=== PATIENT | female | born 1960 | race Caucasian/White ===

== ENCOUNTER 2016-10-16 04:10 | Emergency (ER) | payer MEDICARE, OTHER ==
[2016-10-16] MEDS ORDERED: ONDANSETRON HCL/PF 2 MG/ML VIAL ONE ×2 (04:24→04:29)
[2016-10-16] MEDS ORDERED: FAMOTIDINE 10 MG/ML VIAL IV ONE ×2 (04:25→04:27)
[2016-10-16] MEDS ORDERED: METHYLPREDNISOLONE SOD SUCC/PF 125 MG/2 ML VIAL IV ONE (04:26)
[2016-10-16] MEDS ORDERED: EPINEPHrine 1 MG/ML AMPUL IM ONE (04:26)
[2016-10-16] MEDS ORDERED: ONDANSETRON HCL/PF 2 MG/ML VIAL IV ONE ×2 (04:28)
[2016-10-16] MEDS ORDERED: NORMAL SALINE 1,000 ML IV ONE (04:31)
--- NOTE | 2016-10-16 05:13 | ERNOTE ---
Allergy Symptoms - ER Presenting Symptoms: dizziness Time Seen by Provider: 10/16/16 04:15 Source: patient Exam Limitations: no limitations Immunizations: IMMUNIZATION HX Immunizations Up to Date Yes History of Influenza Vaccine Yes Hx Pneumococcal Vaccination No Allergies/Adverse Reactions: Allergies Luzcsgu-Fvb-Cfd Reductase Inhibitor Allergy (Verified 10/16/16 04:16) codeine Adverse Reaction (Verified 10/16/16 04:16) Sulfa (Sulfonamide Antibiotics) Adverse Reaction (Verified 10/16/16 04:15) Home Medications: HOME MEDICATIONS Aspirin 325 mg PO DAILY 10/16/16 [Last Taken Unknown] Baclofen 10 mg PO TID 10/16/16 [Last Taken Unknown] Cyanocobalamin [Vitamin B-12] 1,000 mcg IJ Q42D 10/16/16 [Last Taken Unknown] Estradiol 0.5 mg PO DAILY 10/16/16 [Last Taken Unknown] Ezetimibe [Zetia] 10 mg PO DAILY 10/16/16 [Last Taken Unknown] Fesoterodine Fumarate [Toviaz] 4 mg PO DAILY 10/16/16 [Last Taken Unknown] Gabapentin [Neurontin] 600 mg PO HS 10/16/16 [Last Taken Unknown] HYDROcodone/ACETAMINOPHEN [Hydrocodon-Acetaminoph 7.5-325] 1 each PO Q6H PRN [Last Taken Unknown] Lidocaine [Lidocaine Ointment] 1 appl TP PRN PRN 10/16/16 [Last Taken Unknown] Lisinopril [Zestril] 20 mg PO DAILY 10/16/16 [Last Taken Unknown] [place]-3S/Dha/Epa/Fish Oil [Fish Oil 1,200 mg Softgel] 1 each PO DAILY 10/16/16 [ Last Taken Unknown] Omeprazole 20 mg PO BID 10/16/16 [Last Taken Unknown] PARoxetine HCL [Paxil] 40 mg PO DAILY 10/16/16 [Last Taken Unknown] Pitavastatin Calcium [Livalo] 4 mg PO DAILY 10/16/16 [Last Taken Unknown] Prasugrel HCl [Effient] 10 mg PO DAILY 10/16/16 [Last Taken Unknown] Triamcinolone Acetonide [Kenalog 0.1%] 1 appl TP BID 10/16/16 [Last Taken Unknown] metFORMIN HCL [Glucophage] 850 mg PO BID 10/16/16 [Last Taken Unknown] - History of Present Illness Narrative: Pt began having a rash before going to bed, she took 50 mg of benadryl and went to sleep. She was awakened by itching and took 50 additional mg of benadryl. This did not help and she had nausea and felt like she was going to pass out. 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 Location skin rash/itching: Present: diffuse Location swelling: Present: hands, feet Severity shortness of breath: Present: mild Identified cause?: No Modifying Factors (Improves): Denies: medications - prior to coming to the ED Review of Systems - Review of Systems Constitutional: Absent: fever, chills EYE: Present: no symptoms reported ENT: Present: no symptoms reported Respiratory: Present: shortness of breath Cardiology: Present: edema Gastrointestinal/Abdominal: Present: See HPI, nausea Genitourinary: Present: no symptoms reported Musculoskeletal: Present: back pain - after falling in the [place] yesterday. After "walking it off" she felt better Skin: Present: rash Neurological: Present: dizziness/light-headedness. Absent: numbness, tingling Endocrine: Present: no symptoms reported Hematologic/Lymphatic: Present: no symptoms reported Psych: Present: no symptoms reported - Patient's Past Medical History Patient History - Medical: Diabetes Type 2, Depression, Fibromyalgia Patient History - Cardiac/Respiratory: Coronary Heart Disease, Hyperlipidemia, Myocardial Infarction Patient History - Cancer: No Hx of Cancer Patient History - Surgical Procedures: Appendectomy, Hysterectomy, Other - Social History Living Situations: alone Abuse History: No History of abuse Psych History: Hx of Depression Smoking Status: Former smoker Have you smoked in the past 12 months: No Do you dip or chew tobacco: No Alcohol Use: none Drug Use: none - Immunizations Immunizations Up to Date: Yes Hx Pneumococcal Vaccination: No History of Influenza Vaccine: Yes Physical Exam - Physical Exam General Appearance: Present: wd/wn, alert, mild distress, moderate distress Eye Exam: Normal inspection: bilateral Ears, Nose, Throat: Present: normal ENT inspection, normal pharynx Neck: Present: normal inspection, nontender Respiratory: Present: no respiratory distress, wheezing - faint Cardiovascular/Chest: Present: regular rate, rhythm Gastrointestinal/Abdominal: Present: normal bowel sounds Back Exam: Present: normal inspection, normal range of motion Extremity Exam: Present: normal inspection Neurological Exam: Present: oriented Skin Exam: Present: skin rash - hives on arms and legs Lymphatic Exam: Present: no adenopathy ED Progress - Vital Signs Vital Signs: Vital Signs 10/16/16 10/16/16 10/16/16 04:17 04:32 04:43 Temperature 37.2 C Pulse Rate 76 68 Respiratory 18 19 18 Rate Blood Pressure 97/58 97/50 O2 Sat by Pulse 94 92 Oximetry - Progress/Reassessment Chief Complaint: Allergic Reaction Progress:: Improved Progress Note-Subjective: 10/16/16 05:11 BP improving pt more relaxed. Hives resolved. 10/16/16 06:16 Pt feels much better. no itching, still feels "puffy" in her hands, no shortness of breath. Departure Clinical Impression: Allergic reaction Qualifiers: Encounter type: initial encounter Qualified Code(s): T78.40XA - Allergy, unspecified, initial encounter - Departure Disposition: Home self-care Condition: Good Instructions: Ryan, [id number] Additional Instructions: Watch for any return of your symptoms. Return to ER if symptoms return
[2016-10-16 06:19] VITALS: BP 101/81
--- OUTSIDE RECORDS SUMMARY | 2016-10-16 06:23 | XMS REPORT | Continuity of Care Document ---
:1960 Author Organization [facility] [place] [address] Care Team Providers Name Role Phone Stone Mooney Primary Care Provider [phone] Source Comments This disclosure is being made pursuant to the [employer] program and maynot contain all information available regarding this patient.[facility] Active Allergies and Adverse Reactions Allergen Noted Date Severity Reactions Comments Codeine 03/15/2014 High Hives,Seizures Fenofibrate 03/15/2014 Low Rash Gemfibrozil 03/15/2014 Low Rash Other 03/15/2014 Medium Nausea And Vomiting,Other (See reglan Comments) Paroxetine Hcl 03/15/2014 Medium Nausea And Vomiting Plaquenil 03/15/2014 Low Rash Sulfa Antibiotics 03/15/2014 High Hives Current Medications Be aware that medications may not be up to date as of this document. Alwaysverify current medications with the patient. Prescription Sig. Disp. Refills Start End Status Date Date fluticasone 1 spray by Nasal Active (FLONASE) 50 route as needed. 3 MCG/ACT nasal spray Each nostril aspirin 325 MG Take 325 mg by Active tablet mouth daily. promethazine Take 1 tablet by 10 tablet 0 Active (PHENERGAN) 12.5 MG mouth every 6 5 tablet (six) hours as needed for Nausea. cyclobenzaprine Take 10 mg by Active (FLEXERIL) 10 MG mouth every 8 tablet (eight) hours as needed for Muscle spasms. glucose blood test Uses alden plus 100 each 0 Active strip meter. DX: E11.9 6 Blood Glucose 1 Device by Does 1 each 0 Active Monitoring Suppl not apply route 6 MICHELLE daily. Uses alden plus. DX: E11.9 triamcinolone Apply to affected 45 g 5 Active (KENALOG) 0.1 % area twice daily 6 cream as needed no more than 2 weeks at a time Lancets MISC Test blood sugar 100 each 2 Active once daily and as 6 needed. Uses [employer] plus meter. DX: E11.9 vitamin B-12 Inject 1 ml in the 1 mL 4 Active (CYANOCOBALAMIN) muscle once every 6 1000 MCG/ML 6 weeks. injection SYRINGE-NEEDLE, Use syringe to 1 each 5 Active DISP, 3 ML inject 6 (MEDSAVER SYRINGE cyanocobalamin 3CC/25GX1") 25G X (vitamin b-12) 1" 3 ML MISC 1000 mcg IM every 6 weeks fish oil 1000 MG Take 1 capsule by 90 capsule 3 Active CAPS mouth daily. 6 estradiol (ESTRACE) TAKE 1 TABLET 90 tablet 1 Active 0.5 MG tablet EVERY DAY 6 gabapentin TAKE 2 CAPSULES 180 capsule 1 Active (NEURONTIN) 300 MG NIGHTLY. 6 capsule ZETIA 10 MG tablet TAKE 1 TABLET 90 tablet 1 Active EVERY DAY 6 lisinopril TAKE 1 TABLET 90 tablet 1 Active (PRINIVIL,ZESTRIL) EVERY DAY 6 20 MG tablet prasugrel HCl Take 1 tablet by 90 tablet 2 Active (EFFIENT) 10 MG mouth daily. 6 tablet lidocaine-prilocain Apply up to 2 60 g 5 Active e (EMLA) cream affected areas up 7 to twice a day. LIVALO 4 MG TABS TAKE 1 TABLET 90 tablet 3 Active tblet EVERY DAY 7 baclofen (LIORESAL) Take 1 tablet by 270 tablet 3 Active 10 MG tablet mouth 3 (three) 7 times daily. omeprazole Take 1 capsule by 90 capsule 3 Active (PRILOSEC) 20 MG mouth every 7 capsule morning before breakfast. PAXIL 40 MG tablet TAKE 1 TABLET 90 tablet 1 Active EVERY MORNING 7 metFORMIN Take 1 tablet by 180 tablet 1 Active (GLUCOPHAGE) 850 MG mouth 2 (two) 7 tablet times daily. TOVIAZ 4 MG TB24 TAKE 1 TABLET 90 tablet 1 Active 24hr tablet EVERY DAY 7 HYDROcodone-acetami Take 1-2 tablets 240 tablet 0 04/03/201 Active nophen (NORCO) by mouth every 6 7 7.5-325 MG per (six) hours as tablet needed. metFORMIN Take 1 tablet by 180 tablet 1 Discontinued (GLUCOPHAGE) 850 MG mouth 2 (two) 6 017 tablet times daily. fesoterodine Take 1 tablet by 90 tablet 1 Discontinued fumarate (TOVIAZ) 4 mouth daily. 7 017 MG TB24 24hr tablet HYDROcodone-acetami Take 1-2 tablets 240 tablet 0 Discontinued nophen (NORCO) by mouth every 6 7 017 7.5-325 MG per (six) hours as tablet needed Earliest Fill Date: 08/26/16. Active Problems Problem Noted Date Depression 12/10/2015 Hypertriglyceridemia 11/27/2015 Urinary frequency 11/13/2015 Lumbar spondylosis 12/24/2014 Sacroiliitis (HCC) 12/24/2014 Spinal stenosis, lumbar region, without neurogenic claudication 12/24/2014 Generalized osteoarthrosis, involving multiple sites 03/22/2014 Overview: Overview: STONE MOONEY DO Erythema nodosum 03/22/2014 Overview: Overview: EFREN HOFFMANN MD Overview: EFREN HOFFMANN MD Esophageal reflux 09/14/2012 Overview: Overview: DAY RESENDIZ MD Gastroparesis 09/14/2012 Overview: Overview: DAY RESENDIZ MD Personal history of malignant neoplasm of rectum, rectosigmoid junction, 07/09 and anus Overview: Overview: Tori ALBERTS MD Postmenopausal status (age-related) (natural) 07/09/2011 Overview: Overview: Tori ALBERTS MD Other screening mammogram 07/09/2011 Overview: Overview: Tori ALBERTS MD Insomnia 04/07/2011 Overview: Overview: STONE MOONEY DO Aftercare following joint replacement 02/17/2011 Overview: Overview: L TKA 01/12/11 REVA CROWLEY CNP Coronary atherosclerosis of [place] coronary artery 12/09/2010 Overview: Overview: JAC CARBAJAL MD Postsurgical percutaneous transluminal coronary angioplasty status 12/09/2010 Overview: Overview: JAC CARBAJAL MD Abnormal electrocardiogram 10/23/2010 Overview: Overview: JAC CARBAJAL MD Family history of ischemic heart disease 10/23/2010 Overview: Overview: JAC CARBAJAL MD Personal history of tobacco use, presenting hazards to health 10/23/2010 Overview: Overview: JAC CARBAJAL MD Hypercholesterolemia 10/23/2010 Overview: Overview: JAC CARBAJAL MD Essential hypertension 05/30/2010 Overview: Overview: STONE MOONEY DO Hereditary and idiopathic peripheral neuropathy 12/25/2009 Overview: Overview: STONE MOONEY DO Pernicious anemia 11/13/2009 Overview: Overview: STONE MOONEY DO Borderline personality disorder 11/13/2009 Overview: Overview: STONE MOONEY DO Personal history of allergy to medicinal agent 11/13/2009 Overview: Overview: STONE MOONEY DO Rheumatoid arthritis(714.0) 01/08/2009 Overview: Overview: EFREN HOFFMANN MD Leukocytosis 04/27/2008 Overview: Overview: DILAN HINSON MD Squamous cell carcinoma of skin of trunk, except scrotum 08/23/2007 Overview: Overview: DILAN HINSON MD Diabetes mellitus type II, controlled (HCC) Resolved Problems Problem Noted Date Resolved Date Cervicalgia 12/24/2014 05/21/2015 Contusion of lower leg 10/18/2013 05/21/2015 Overview: Overview: STONE MOONEY DO Contusion of upper limb 10/18/2013 05/21/2015 Overview: Overview: STONE MOONEY DO Abdominal pain 06/19/2013 05/21/2015 Overview: Overview: STONE MOONEY DO Rash and nonspecific skin eruption 2013 05/21/2015 Overview: Overview: STONE MOONEY DO Screening for thyroid disorder 08/15/2012 05/21/2015 Overview: Overview: STONE MOONEY DO Symptomatic menopausal or female climacteric states 07/26/2012 05/21/2015 Overview: Overview: STONE MOONEY DO Tobacco use disorder 01/04/2012 05/21/2015 Overview: Overview: JAC CARBAJAL MD Mixed emotional features as adjustment reaction 08/12/2011 05/21/2015 Overview: Overview: STONE MOONEY DO Legal circumstance 08/12/2011 05/21/2015 Overview: Overview: STONE MOONEY DO Urinary tract infection 09/23/2010 05/21/2015 Overview: Overview: STONE MOONEY DO Backache 09/11/2010 05/21/2015 Overview: Overview: STONE MOONEY DO Need for prophylactic vaccination and inoculation against 04/09/20102014 influenza Overview: Overview: STONE MOONEY DO Myalgia and myositis 02/25/2010 05/21/2015 Overview: Overview: EFREN HOFFMANN MD Carpal tunnel syndrome 11/13/2009 05/21/2015 Overview: Overview: STONE MOONEY DO Type II diabetes mellitus (HCC) 11/13/2009 05/21/2015 Overview: Overview: STONE MONOEY DO Hyperglyceridemia 11/13/2009 05/21/2015 Overview: Overview: STONE MOONEY DO Dermatitis 01/02/2009 05/21/2015 Overview: Overview: LALITA BLACK Pruritic disorder 01/02/2009 05/21/2015 Overview: Overview: LALITA BLACK Pain in joint, multiple sites 01/26/2008 05/21/2015 Overview: Overview: EFREN HOFFMANN MD Human papilloma virus 08/23/2007 05/21/2015 Overview: Overview: DILAN HINSON MD Most Recent Encounters Date Type Specialty Providers Description 09/28/2016 Refill Rheumatology Rosalba Torres RN 09/25/2016 Refill Family Medicine Stone Mooney DO 09/25/2016 Refill Family Medicine Bernice Potter RN 09/24/2016 Data Import 08/26/2016 Refill Rheumatology April Owens CMA 07/29/2016 Refill Family Medicine Stone Mooney DO 07/23/2016 Office Visit Family Medicine Stone Mooney DO Pernicious anemia (Primary Dx); Controlled type 2 diabetes mellitus without complication, without long-term current use of insulin (HCC); Essential hypertension; Generalized osteoarthrosis, involvingmultiple sites; Borderline personality disorder; Hypercholesterolemia; Bipolar affective disorder, remission status unspecified (HCC); Erythema nodosum 07/23/2016 Office Visit Rheumatology Efren Hoffmann, Primary osteoarthritis MD involving multiple joints (Primary Dx); Fibromyalgia; Erythema nodosum 07/23/2016 Office Visit Gastroenterology Alon Rodrigues Gastroparesis (Primary T II, DO Dx); Gastroesophageal reflux disease without esophagitis 07/23/2016 Telephone Rheumatology Melida Lopez Medication Refill Ely, RN Immunizations Name Dates Previously Given Next Due INFLUENZA, INACTIVATED, QUADRIVALENT, 3 YEARS AND 03/25/2016 older, single dose syringe/vial Influenza Split 06/19/2013,04/09/2010 Influenza, Inactivated, Quadrivalent, 3 years and 05/21/2015 older, multi-dose vial Social History Tobacco Use Types Packs/Day Years Used Date Former Smoker Cigarettes 0.5 Smokeless Tobacco: Never Used Tobacco Cessation:Counseling Given: Yes Comments:Pt quit smoking 12/29/14 Alcohol Use Drinks/Week oz/Week Comments No 0 Standard drinks or equivalent 0.0 Last Filed Vital Signs Vital Sign Reading Time Taken Blood Pressure 134/86 07/23/2016 1:50 PM MANAGER [employer]EARCH [employer] DEVELOPMENT Pulse 80 07/23/2016 1:50 PM MANAGER [employer] DEVELOPMENT Temperature 36.4 C (97.6 F) 07/23/2016 10:25 AM MANAGER [employer]EARCH [employer] DEVELOPMENT Respiratory Rate 12 05/21/2015 10:44 AM MANAGER [employer] DEVELOPMENT Height 1.537 m (5' 0.5") 07/23/2016 1:50 PM MANAGER [employer]EARCH [employer] DEVELOPMENT Weight 87.091 kg (192 lb) 07/23/2016 1:50 PM MANAGER [employer]EARCH [employer] DEVELOPMENT Body Mass Index 36.87 07/23/2016 1:50 PM MANAGER [employer]EARCH [employer] DEVELOPMENT Oxygen Saturation - - Plan of Care Patient Goal Type Goal Blood Pressure Blood Pressure below 140/90 Result Component HEMOGLOBIN A1C below 7.0 Health Maintenance Due Date Last Done Comments Eye (Ophthalmology) Exam 1968 Hepatitis C Screening 1976 Pneumococcal Medium Risk 1977 19-64 yo (1 of 1 - PPSV23) Tetanus/Pertussis (1 - Tdap) 1977 Pap Smear 1979 Well Adult Visit 2008 LAB-HgA1C 01/20/2017 07/23/2016, Additional history exists 03/25/2016, 02/21/2015 Colonoscopy 03/25/2017 Postponed from 2008 (Patient Declined) Mammogram 04/25/2017 04/25/2015, 07/20/2011 Foot Exam 07/23/2017 07/23/2016 Lab-Lipids 07/23/2017 07/23/2016, Additional history exists 03/25/2016, 11/08/2014 Lab-Urine Microalbumin 07/23/2017 07/23/2016, Additional history exists 11/08/2014, 06/19/2013 Influenza Immunization Completed 03/25/2016, Additional history exists 05/21/2015, 06/19/2013 Results from Last 3 Months TSH (07/23/2016 10:11 AM) Component Value Range TSH 0.950 0.350-4.940 uIU/mL Narrative Testing performed at [facility], [address] [place] [address].Defense Attorney Fran Doe MD Microalbumin Urine Random (07/23/2016 10:11 AM) Component Value Range Microalbumin UR <0.50Comment:Unable to calculate 0.00-2.10 mg/dL Microalbumin/Creatinine Ratio due to linear low results. Creatinine Urine 126.0 mg/dL Narrative Testing performed at [facility], [address] [place] [address].Defense Attorney Fran Doe MD Specimen: UACUL Lipid panel (07/23/2016 10:11 AM) Component Value Range Cholesterol 162Comment:Cholesterol preferred <200 mg/dL. 0-200 mg/dL Clinical correlation is essential. Triglycerides 195 0-200 mg/dL HDL Cholesterol 43(L) >60 mg/dL LDL Calculated 80.0Comment: mg/dL <100Optimal 100-129 Near Optimal/Above Optimal 130-159 Borderline High 160-189 High >bw=[id number] High Cholesterol/HDL Ratio 3.8Comment:HDL:Chol ratio Low Risk 1:3.3-1:4.3, Clinical Correlation essential. Narrative Testing performed at [facility], [address] [place] [address].Defense Attorney Fran Doe MD Comprehensive metabolic panel (07/23/2016 10:11 AM) Component Value Range Glucose 113(H)Comment: 60-100 mg/dL Fasting Plasma Glucose (FPG)<100 MG/DL Impaired Fasting Glucose (IFG) 100-125 MG/DL Provisional Diagnosis of Diabetes Mellitus > hy=359 MG/DL (Diagnosis Must Be Confirmed) BUN, Blood 12 10-20 mg/dL Creatinine 0.7 0.6-1.2 mg/dL Glomerular Filtration Rate 96 >90 mL/min/1.73mm2 Estimate Glomerlular Filtration Rate 111Comment:The estimated GFR >90 mL/min/1.73mm2 Estimate- has not been validated for women or patients with serious comorbid conditions, or with extremes of body size, muscle mass, or nutritional status. Calcium 9.3 8.4-10.2 mg/dL Sodium 140 136-145 mmol/L Potassium 4.2 3.5-4.6 mmol/L Chloride 104 99-111 mmol/L CO2 29.1 21.0-32.0 mmol/L Albumin 3.7 3.5-5.0 g/dL Total Protein 7.1 6.1-8.0 g/dL Bilirubin Total 0.6 0.2-1.2 mg/dL Alkaline Phosphatase 72 40-150 U/L AST 28 5-34 U/L ALT 27 0-55 u/L Narrative Testing performed at [facility], [address] [place] [address].Defense Attorney Fran Doe MD CBC auto differential (07/23/2016 10:11 AM) Component Value Range WBC 7.4 3.1-11.0 x10^3/uL RBC 4.37 3.60-5.17 x10^6/uL Hemoglobin 13.6 11.1-15.3 g/dL Hematocrit 40.6 33.7-46.0 % MCV 92.9 81.0-98.0 fL MCH 31.1 27.2-33.3 pg MCHC 33.5 31.7-35.6 g/dL RDW 13.2 10.8-14.6 % SD-RDW 43.5 37.0-50.4 fL Platelets 369 147-370 x10^3/uL MPV 9.3 9.1-12.1 fL NE% 52.4 42.0-76.0 % %LYMPH 39.4 15.0-44.0 % %MONO 5.5 4.0-13.0 % % Eosinophils 1.6 0.0-6.0 % % Basophils 0.8 0.0-1.0 % Imm Gran Relative 0.3 0.0-1.0 % NE# 3.9 1.2-7.3 x10^3/uL Lymphs # 2.9 0.6-3.5 x10^3/uL Conway# 0.4 0.2-0.9 x10^3/uL Eosinophil # 0.1 0.0-0.4 x10^3/uL Baso# 0.1 0.0-0.1 x10^3/uL Imm Gran Absolute 0.02 0.00-0.10 x10^3/uL Specimen BLOOD Narrative Testing performed at [facility], [address] [place] [address].Defense Attorney Fran Doe MD Specimen: BLD Vitamin B12 (07/23/2016 10:11 AM) Component Value Range Vitamin B-12 436 213-816 pg/mL Narrative Testing performed at [facility], [address] [place] [address].Defense Attorney Fran Doe MD Hemoglobin A1c (07/23/2016 10:11 AM) Component Value Range Hemoglobin A1C 6.6Comment: % Nondiabetic Patient:4.0 - 6.0 % Diabetic Patient: < 7.0 % Clinical correlation is essential Estimated Avg Glucose 143 mg/dL Narrative Testing performed at [facility], [address] [place] [address].Defense Attorney Fran Doe MD
--- OUTSIDE RECORDS SUMMARY | 2016-10-16 06:23 | XMS REPORT | Continuity of Care Document ---
:1960 Author Organization [facility] ([facility]) Address [place] [address] Phone [phone] Care Team Providers Name Role Phone Brain De León Primary Care Provider [phone] Source Comments This disclosure is being made pursuant to the Care Everywhere program, applicable federal and state laws, and may not contain all informaitonavailable regarding this patient.[facility] ([facility]) Active Allergies and Adverse Reactions Allergen Noted Date Severity Reactions Comments Codeine Urticaria (Hives) "have a seizure too" Sulfadoxine Urticaria (Hives) Current Medications Not on file Active Problems Not on file Social History Tobacco Use Types Packs/Day Years Used Date Never Assessed Last Filed Vital Signs Vital Sign Reading Time Taken Blood Pressure - - Pulse - - Temperature - - Respiratory Rate - - Height - - Weight 91.999 kg (202 lb 13.1 oz) 08/18/2004 12:50 PM 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
== END 2016-10-16 06:33 | disposition home or self-care (01) ==
LOC: ER 04:10
DX: L50.0 Allergic urticaria (principal); T78.40XA Allergy, unspecified, initial encounter; Z87.891 Personal history of nicotine dependence

== ENCOUNTER 2016-12-06 15:44 | Emergency (ER) | payer MEDICARE ==
[2016-12-06] MEDS ORDERED: ONDANSETRON HCL/PF 2 MG/ML VIAL IV ONE (16:06)
[2016-12-06] MEDS ORDERED: NORMAL SALINE 1,000 ML IV ONE (16:06)
--- OUTSIDE RECORDS SUMMARY | 2016-12-06 16:08 | XMS REPORT | Continuity of Care Document ---
:1960 Author Organization [facility] ([facility]) Address [place] [address] Phone [phone] Care Team Providers Name Role Phone Brain De León Primary Care Provider [phone] Source Comments This disclosure is being made pursuant to the Care Everywhere program, applicable federal and state laws, and may not contain all informaitonavailable regarding this patient.[facility] ([facility]) Active Allergies and Adverse Reactions Allergen Noted [...] (202 lb 13.1 oz) 08/18/2004 12:50 PM STUDIO ENGINEER Body Mass Index - - Oxygen Saturation [...]
--- OUTSIDE RECORDS SUMMARY | 2016-12-06 16:08 | XMS REPORT | Continuity of Care Document ---
:1960 Author Organization [facility] [place] [address] Care Team Providers Name Role Phone Stone Mooney Primary Care Provider [phone] Source Comments This disclosure is being made pursuant to the My Own Med program and maynot contain all information available regarding this patient.[facility] Active Allergies and Adverse Reactions Allergen Noted Date Severity Reactions Comments Codeine 03/15/2014 High Hives,Seizures Fenofibrate 03/15/2014 Low Rash Gemfibrozil 03/15/2014 Low Rash Lipitor 11/02/2016 High Hives Other 03/15/2014 Medium Nausea And Vomiting,Other (See [...] once daily and as 6 needed. Uses alden plus meter. DX: E11.9 vitamin B-12 Inject [...] capsule 3 Active CAPS mouth daily. 6 prasugrel HCl Take 1 tablet by 90 [...] 1 Active 24hr tablet EVERY DAY 7 lisinopril TAKE 1 TABLET 90 tablet 1 Active (PRINIVIL,ZESTRIL) EVERY DAY 7 20 MG tablet estradiol (ESTRACE) TAKE 1 TABLET 90 tablet 1 Active 0.5 MG tablet EVERY DAY 7 ZETIA 10 MG tablet TAKE 1 TABLET 90 tablet 0 Active EVERY DAY 7 gabapentin TAKE 2 CAPSULES 180 capsule 1 Active (NEURONTIN) 300 MG NIGHTLY. 7 capsule HYDROcodone-acetami Take 1-2 tablets 240 tablet 0 Active nophen (NORCO) by mouth every 6 7 7.5-325 MG per (six) hours as tablet needed. HYDROcodone-acetami Take 1-2 tablets 240 tablet 0 Discontinued nophen (NORCO) by mouth every 6 7 017 7.5-325 MG per (six) hours as tablet needed. Active Problems Problem Noted Date Bipolar affective disorder ([facility]) 10/19/2016 Depression 12/10/2015 Hypertriglyceridemia 11/27/2015 Urinary frequency 11/13/2015 Lumbar spondylosis 12/24/2014 Sacroiliitis ([facility]) 12/24/2014 Spinal stenosis, lumbar region, without neurogenic claudication 12/24/2014 Generalized osteoarthrosis, involving multiple sites 03/22/2014 Overview: Overview: STONE MOONEY DO Erythema nodosum 03/22/2014 Overview: Overview: VENKATA HOFFMANN MD Overview: VENKATA HOFFMANN MD Esophageal reflux 09/14/2012 Overview: Overview: [...] 01/12/11 REVA CROWLEY CNP Coronary atherosclerosis of [place] coronary artery 12/09/2010 Overview: Overview: JAC CARBAJAL [...] MOONEY DO Rheumatoid arthritis(714.0) 01/08/2009 Overview: Overview: VENKATA HOFFMANN MD Leukocytosis 04/27/2008 Overview: Overview: DILAN [...] Myalgia and myositis 02/25/2010 05/21/2015 Overview: Overview: VENKATA HOFFMANN MD Carpal tunnel syndrome 11/13/2009 05/21/2015 Overview: Overview: STONE MOONEY DO Type II diabetes mellitus (HCC) 11/13/2009 05/21/2015 Overview: Overview: STONE MOONEY DO Hyperglyceridemia 11/13/2009 05/21/2015 Overview: Overview: STONE MOONEY DO Dermatitis 01/02/2009 05/21/2015 Overview: Overview: LALITA BLACK Pruritic disorder 01/02/2009 05/21/2015 Overview: Overview: LALITA BLACK Pain in joint, multiple sites 01/26/2008 05/21/2015 Overview: Overview: VENKATA HOFFMANN MD Human papilloma virus 08/23/2007 05/21/2015 Overview: Overview: DILAN HINSON MD Most Recent Encounters Date Type Specialty Providers Description 11/24/2016 Refill Rheumatology Hilda Mendoza LPN 11/02/2016 Initial consult Podiatry Stone Mooney DO Cellulitis of fourth Williamson, Shwetal B, toe of left foot DPM (Primary Dx); Pain of toe of left foot 10/30/2016 Refill Internal Medicine Stone Mooney DO Spinal stenosis, lumbar region, without neurogenic claudication 10/28/2016 Refill Internal Medicine Stone Mooney DO 10/28/2016 Refill Cardiology Jac Carbajal Medication Refill 10/22/2016 Telephone Family Medicine Rosalba Huddleston Other RN 10/22/2016 Telephone Rheumatology Melida Lopez Medication Refary Graves RN 10/19/2016 Office Visit Family Medicine Stone Mooney DO Cellulitis and abscess of foot (Primary Dx); Controlled type 2 diabetes mellitus without complication, without long-term current use of insulin (HCC); Bipolar affective disorder, remission status unspecified (HCC); Acute midline thoracic back pain; Chronic midline low back pain with left-sided sciatica 09/28/2016 Refill Rheumatology Rosalba Torres RN 09/25/2016 Refill Family Medicine Stone Mooney DO 09/25/2016 Refill Family Medicine Bernice Potter RN Immunizations Name Dates Previously Given Next [...] Vital Sign Reading Time Taken Blood Pressure 126/74 10/19/2016 10:24 AM CDT Pulse 66 10/19/2016 10:24 AM CDT Temperature 36.4 C (97.6 F) 07/23/2016 10:25 AM [employer]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 Respiratory Rate 12 05/21/2015 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 Height 1.537 m (5' 0.5") 07/23/2016 1:50 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 Weight 89.994 kg (198 lb 6.4 oz) 10/19/2016 10:24 AM CDT Body Mass Index 38.09 10/19/2016 10:24 AM CDT Oxygen Saturation - - Plan of Care [...] 2008 (Patient Declined) Mammogram 04/25/2017 04/25/2015, 07/20/2011 Lab-Lipids 07/23/2017 07/23/2016, Additional history exists 03/25/2016, 11/08/2014 Lab-Urine Microalbumin 07/23/2017 07/23/2016, Additional history exists 11/08/2014, 06/19/2013 Foot Exam 11/02/2017 11/02/2016, 07/23/2016 Influenza Immunization Completed 03/25/2016, Additional history exists 05/21/2015, 06/19/2013 Results from Last 3 Months XR LUMBOSACRAL SPINE MIN 4 VIEWS (10/19/2016 11:39 AM) [place] [address] DIAGNOSTIC IMAGING Name: Gabbie Aparicio Ordering Phys: Stone Real Age: [id number] of : [id number] Accession Number: [id number] Date of Service:10/19/2016 Gender: F EXAMINATION:LUMBAR SPINE HISTORY:History of degenerative disc disease and low back pain now having lower thoracic pain and pain into left thigh for approximately 1 week COMPARISON:None TECHNIQUE:Five views of the lumbar spine were obtained. FINDINGS: The alignment is notable for mild levoconvex curvature.There are 6 vvo-yir-ojfwshz vertebral bodies. Vertebral body and disc space heights are preserved. There is mild multilevel degenerative change. There is disc space narrowing greatest at theL4-5 level this is counting from the first jye-ptf-qxcjywo vertebral body. The soft tissues are within normal limits. IMPRESSION:Scoliosis multilevel degenerative change THIS IS AN ELECTRONICALLY VERIFIED REPORT 10/20/2016 1:17 PM: Papito Garcia M.D. [facility] Papito Garcia M.D. GR:verna Procedure Note Dalton, External Ris In - WedOct 20, 2016 1:21 [place] [address] DIAGNOSTIC IMAGING Name: Gabbie Aparicio Ordering Phys: Stone Real Age: [id number] Date of : [id number] Accession Number: [id number] Date of Service:10/19/2016 Gender: F EXAMINATION: LUMBAR SPINE HISTORY: History of degenerative disc disease and low back pain now having lower thoracic pain and pain into left thigh for approximately 1 week COMPARISON: None TECHNIQUE: Five views of the lumbar spine were obtained. FINDINGS: The alignment is notable for mild levoconvex curvature. There are 6 rbk-qmx-dekhxkv vertebral bodies. Vertebral body and disc space heights are preserved. There is mild multilevel degenerative change. There is disc space narrowing greatest at theL4-5 level this is counting from the first tca-ufc-znmobno vertebral body. The soft tissues are within normal limits. IMPRESSION: Scoliosis multilevel degenerative change THIS IS AN ELECTRONICALLY VERIFIED REPORT 10/20/2016 1:17 PM: Lyle Jasmine M.D. GR:verna XR THORACIC SPINE 3 VIEWS (10/19/2016 11:38 AM) [place] [address] DIAGNOSTIC IMAGING Name: Gabbie Aparicio Ordering Phys: Stone Real Age: [id number] of : [id number] Accession Number: [id number] Date of Service:10/19/2016 Gender: F EXAMINATION:THORACIC SPINE HISTORY:Degenerative disc disease with low back pain lower thoracic region pain and pain into left side worse for the last week COMPARISON:None TECHNIQUE: Three views of the thoracic spine were obtained. FINDINGS:The alignment is normal. Vertebral body heights are preserved. There is multilevel degenerative disc disease with anterior osteophytes and endplate sclerosis. The soft tissues are within normal limits. The lungs are notable for calcified granuloma IMPRESSION : Multilevel degenerative disc disease THIS IS AN ELECTRONICALLY VERIFIED REPORT 10/20/2016 1:19 PM: Lyle Jasmine M.D. GR:verna Procedure Note Dalton, External Ris In - WedOct 20, 2016 1:23 [place] [address] DIAGNOSTIC IMAGING Name: Gabbie AparicioRicky Ordering Phys: Stone Real Age: [id number] Date of : [id number] Accession Number: [id number] Date of Service:10/19/2016 Gender: F EXAMINATION: THORACIC SPINE HISTORY: Degenerative disc disease with low back pain lower thoracic region pain and pain into left side worse for the last week COMPARISON: None TECHNIQUE: Three views of the thoracic spine were obtained. FINDINGS: The alignment is normal. Vertebral body heights are preserved. There is multilevel degenerative disc disease with anterior osteophytes and endplate sclerosis. The soft tissues are within normal limits. The lungs are notable for calcified granuloma IMPRESSION : Multilevel degenerative disc disease THIS IS AN ELECTRONICALLY VERIFIED REPORT 10/20/2016 1:19 PM: Lyle Jasmine M.D. GR:gr Urinalysis with microscopic (10/19/2016 11:25 AM) Component Value Range *KWADWO TYPE Clean Catch Color, Fluid Yellow Yellow Clarity, Fluid Clear Clear Specific [place] 1.012 1.001-1.035 pH 5.5 5.0-8.0 Leukocyte Esterase, UA Negative Negative Nitrite Negative Negative Protein Negative Negative Glucose, Urinalysis Negative Negative Ketones, UA Negative Negative Urobilinogen Negative Negative Bilirubin Urine Negative Negative Blood Negative Negative WBC 3-6(A) 0-2 RBC 0-2 0-2 Epithelial Cells, Fluid Rare <2+ Bacteria 2+(A) None Specimen Cln Catch Narrative Testing performed at [facility], [address] [place] [address].Negative Turner Apprentice Fran Doe MD
[2016-12-06] MEDS ORDERED: ONDANSETRON HCL/PF 2 MG/ML VIAL ONE (16:18)
--- NOTE | 2016-12-06 16:18 | ERNOTE ---
Medical Problem HPI - Narrative Date of Service: 12/06/16 - General Chief Complaint: Nausea/Vomiting Time Seen by Provider: 12/06/16 16:01 Source: patient Exam Limitations: no limitations - Immun/Allergies/Home Medications Immunizations: IMMUNIZATION HX Immunizations Up to Date Yes History of Influenza Vaccine Yes Hx Pneumococcal Vaccination No Allergies/Adverse Reactions: Allergies Pfvduak-Eww-Byl Reductase Inhibitor Allergy (Verified 12/06/16 15:53) codeine Adverse Reaction (Verified 12/06/16 15:53) Sulfa (Sulfonamide Antibiotics) Adverse Reaction (Verified 12/06/16 15:53) Home Medications: HOME MEDICATIONS Aspirin 325 mg PO DAILY 10/16/16 [Last Taken Unknown] Baclofen 10 mg PO TID 10/16/16 [Last Taken Unknown] Cyanocobalamin [Vitamin B-12] 1,000 mcg IJ Q42D 10/16/16 [Last Taken Unknown] Estradiol 0.5 mg PO DAILY 10/16/16 [Last Taken Unknown] Ezetimibe [Zetia] 10 mg PO DAILY 10/16/16 [Last Taken Unknown] Fesoterodine Fumarate [Toviaz] 4 mg PO DAILY 10/16/16 [Last Taken Unknown] Gabapentin [Neurontin] 600 mg PO HS 10/16/16 [Last Taken Unknown] HYDROcodone/ACETAMINOPHEN [Hydrocodon-Acetaminoph 7.5-325] 1 each PO Q6H PRN [Last Taken Unknown] Lidocaine [Lidocaine Ointment] 1 appl TP PRN PRN 10/16/16 [Last Taken Unknown] Lisinopril [Zestril] 20 mg PO DAILY 10/16/16 [Last Taken Unknown] [place]-3S/Dha/Epa/Fish Oil [Fish Oil 1,200 mg Softgel] 1 each PO DAILY 10/16/16 [ Last Taken Unknown] Omeprazole 20 mg PO BID 10/16/16 [Last Taken Unknown] PARoxetine HCL [Paxil] 40 mg PO DAILY 10/16/16 [Last Taken Unknown] Pitavastatin Calcium [Livalo] 4 mg PO DAILY 10/16/16 [Last Taken Unknown] Prasugrel HCl [Effient] 10 mg PO DAILY 10/16/16 [Last Taken Unknown] Triamcinolone Acetonide [Kenalog 0.1%] 1 appl TP BID 10/16/16 [Last Taken Unknown] metFORMIN HCL [Glucophage] 850 mg PO BID 10/16/16 [Last Taken Unknown] Ondansetron [Zofran Odt] 4 mg PO Q8H PRN #20 tab 12/06/16 [Last Taken Unknown] - History of Present History Narrative: Patient presents to the emergency room for nausea and diarrhea and vomiting. Patient states that she had a friend's child over with nausea and vomiting yesterday and now she has nausea vomiting today. She also states that she has a GI problem where her small intestine doesn't move as fast or like it should she is on medication for that. Patient is also complaining of leg cramps at this time. Date (Duration): 12/06/16 Timing: intermittent Modifying Factors - (Improves): Present: medication Review of Systems - Review of Systems Constitutional: Present: no symptoms reported EYE: Present: no symptoms reported ENT: Present: no symptoms reported Respiratory: Present: no symptoms reported Cardiology: Present: no symptoms reported Gastrointestinal/Abdominal: Present: See HPI, nausea, vomiting, diarrhea. Absent: constipation, abdominal pain Genitourinary: Present: no symptoms reported Musculoskeletal: Present: muscle pain Skin: Present: no symptoms reported Neurological: Present: no symptoms reported Endocrine: Present: no symptoms reported Hematologic/Lymphatic: Present: no symptoms reported Psych: Present: no symptoms reported All Other Systems: All systems neg except as marked - Patient's Past Medical History Patient History - Medical: Diabetes Type 2, Depression, Fibromyalgia Patient History - Cardiac/Respiratory: Coronary Heart Disease, Hyperlipidemia, Myocardial Infarction Patient History - Cancer: No Hx of Cancer Patient History - Surgical Procedures: Appendectomy, Hysterectomy, Other - Social History Living Situations: alone Abuse History: No History of abuse Psych History: Hx of Depression Smoking Status: Never smoker Alcohol Use: none Drug Use: none - Immunizations Immunizations Up to Date: Yes Hx Pneumococcal Vaccination: No History of Influenza Vaccine: Yes Physical Exam - Physical Exam Narrative: patients abdomen is slightly distended, hypoactive bowel sounds, General Appearance: Present: wd/wn, alert, no apparent distress Eye Exam: Normal inspection: bilateral Ears, Nose, Throat: Present: normal ENT inspection Neck: Present: normal inspection, nontender Respiratory: Present: no respiratory distress, normal breath sounds, no accessory muscle use, chest nontender, lungs clear Cardiovascular/Chest: Present: regular rate, rhythm, no murmur, normal peripheral pulses Gastrointestinal/Abdominal: Present: nontender, soft, abnormal bowel sounds, distended. Absent: guarding, rebound Back Exam: Present: normal inspection, normal range of motion, no CVA tenderness , no vertebral tenderness Extremity Exam: Present: normal inspection, non-tender, normal range of motion, no edema Neurological Exam: Present: alert, oriented, normal mood/affect, no motor/ sensory deficits Skin Exam: Present: normal color, warm/dry Lymphatic Exam: Present: no adenopathy ED Progress - Results and Orders Patient's Lab Results:: I have reviewed the patient's lab results. Results and Orders: mild acidosis and elevated blood glucose, slightly dehydrated. - Vital Signs Patient's Vital Signs:: I have reviewed the patient's vital signs. Vital Signs: Vital Signs 12/06/16 12/06/16 15:45 15:46 Temperature 36.2 C L Pulse Rate 103 H Respiratory 16 Rate Blood Pressure 82/39 139/85 O2 Sat by Pulse 95 Oximetry - Progress/Reassessment Chief Complaint: Nausea/Vomiting Plan - Plan Plan: Patient will return to the emergency room if she starts having nausea/vomiting again. Patient is requesting to go home. Patient states she will follow-up with her GI doctor tomorrow. Departure - Departure Clinical Impression: Nausea and vomiting in adult patient Disposition: Home Follow Up Needed Condition: Stable Instructions: Nausea, Adult Additional Instructions: Please return to the emergency room if you develop any more nausea vomiting diarrhea or a fever. Follow-up with your GI doctor tomorrow. Encourage oral fluids. Follow a soft diet for the next day. Monitor glucose closely. Referrals: Madhu Mooney DO [Primary Care Provider] - Prescriptions: Ondansetron [Zofran Odt] 4 mg PO Q8H PRN #20 tab PRN Reason: Nausea
[2016-12-06 16:36] LABS: Hematocrit 39.3 % (37.0-47.0); Hemoglobin 13.6 gm/dL (12.5-16.0); Mean Cell Volume 92.7 fl (78-100); Mean Corpuscular Hemoglobin 32.1 pg (27-31); Mean Corpuscular Hgb Conc 34.6 g/dl (32-36); Mean Platelet Volume 8.6 fl (6.0-9.5); Neutrophil # 14.9 K/mm3 (1.3-6.0); Neutrophil % 88.2 % (42-75.0); Platelet Count 335 K/mm3 (150-450); Red Blood Count 4.24 M/mm3 (4.2-5.4); White Blood Count 16.8 K/mm3 (4.0-10.5)
[2016-12-06 16:56] LABS: Albumin * 3.5 gm/dl (3.4-5.0); Anion Gap 18.4 mmol/L (6.8-13.8); BUN/Creatinine Ratio 26.9 (9.0-21.6); Bilirubin, Total 0.7 mg/dL (0.0-1.1); Ca. Corrected For Albumin 9.3 mg/dL (8.4-10.2); Calcium * 9.2 mg/dL (7.9-10.9); Magnesium 1.5 mg/dL (1.2-2.8); Potassium 4.4 mmol/L (3.4-4.6); Total Protein 7.6 gm/dL (6.2-8.2)
[2016-12-06 19:02] VITALS: BP 129/75
== END 2016-12-06 18:47 | disposition home or self-care (01) ==
LOC: ER 15:44
DX: R11.2 Nausea with vomiting, unspecified (principal); E11.9 Type 2 diabetes mellitus without complications; F32.9 Major depressive disorder, single episode, unspecified; E78.5 Hyperlipidemia, unspecified
CPT/HCPCS: 36415; 80053; 83735; 85025; 96374; 99284; J2405

== ENCOUNTER 2017-02-17 13:35 | Emergency (ER) | payer MEDICARE ==
[2017-02-17 13:57] VITALS: BP 141/90
[2017-02-17 14:33] LABS: Hematocrit 38.7 % (37.0-47.0); Hemoglobin 13.7 gm/dL (12.5-16.0); Mean Cell Volume 92.4 fl (78-100); Mean Corpuscular Hemoglobin 32.7 pg (27-31); Mean Corpuscular Hgb Conc 35.4 g/dl (32-36); Neutrophil # 5.7 K/mm3 (1.3-6.0); Neutrophil % 66.2 % (42-75.0); Platelet Count 307 K/mm3 (150-450); Red Blood Count 4.19 M/mm3 (4.2-5.4); Red Cell Distribution Width 11.9 % (11.5-14.0); White Blood Count 8.7 K/mm3 (4.0-10.5)
[2017-02-17 14:55] LABS: ALT 42 U/L (19-67); AST 33 U/L (0-48); Acetaminophen * 0.6 mcg/mL (10.0-30.0); Albumin * 3.7 gm/dl (3.4-5.0); Alkaline Phosphatase * 103 U/L (50-170); BUN/Creatinine Ratio 18.6 (9.0-21.6); Bilirubin, Total 0.3 mg/dL (0.0-1.1); Blood Urea Nitrogen 13 mg/dL (3-23); Ca. Corrected For Albumin 9.4 mg/dL (8.4-10.2); Calcium * 9.5 mg/dL (7.9-10.9); Chloride 99 mmol/L (97-106); Glucose * 173 mg/dL (70-110); Potassium 4.8 mmol/L (3.4-4.6); Salicylate Less than 2.8 mg/dL (2.8-20.0); Sodium 134 mmol/L (132-142); TSH * 1.645 uIU/mL (0.358-3.74); Total Protein 7.8 gm/dL (6.2-8.2)
[2017-02-17 15:02] LABS: Anion Gap 15.5 mmol/L (6.8-13.8); Carbon Dioxide 24.3 mmol/L (24-32.6)
[2017-02-17 15:22] LABS: Cocaine Ur Negative (NEGATIVE); Urine Barbiturate Negative (NEGATIVE); Urine Benzodiazepines Negative (NEGATIVE); Urine PCP Negative (NEGATIVE); Urine THC Negative (NEGATIVE)
[2017-02-17 15:23] LABS: Urine Opiates Positive (NEGATIVE)
--- NOTE | 2017-02-17 17:21 | ERNOTE ---
Psychological HPI - Date Date of Service: 02/17/17 - General Chief Complaint: Psychiatric Problem Source: Reports: patient Exam Limitations: Reports: no limitations - Immun/Allergies/Home Medications Allergies/Adverse Reactions: Allergies Pbmbkzw-Ret-Ycg Reductase Inhibitor Allergy (Verified 12/06/16 15:53) codeine Adverse Reaction (Verified 12/06/16 15:53) Sulfa (Sulfonamide Antibiotics) Adverse Reaction (Verified 12/06/16 15:53) Home Medications: HOME MEDICATIONS Aspirin 325 mg PO DAILY 10/16/16 [Last Taken Unknown] Baclofen 10 mg PO TID 10/16/16 [Last Taken Unknown] Estradiol 0.5 mg PO DAILY 10/16/16 [Last Taken Unknown] Ezetimibe [Zetia] 10 mg PO DAILY 10/16/16 [Last Taken Unknown] Fesoterodine Fumarate [Toviaz] 4 mg PO DAILY 10/16/16 [Last Taken Unknown] Gabapentin [Neurontin] 600 mg PO HS 10/16/16 [Last Taken Unknown] HYDROcodone/ACETAMINOPHEN [Hydrocodon-Acetaminoph 7.5-325] 1 each PO Q6H PRN [Last Taken Unknown] Lidocaine [Lidocaine Ointment] 1 appl TP PRN PRN 10/16/16 [Last Taken Unknown] Lisinopril [Zestril] 20 mg PO DAILY 10/16/16 [Last Taken Unknown] [place]-3S/Dha/Epa/Fish Oil [Fish Oil 1,200 mg Softgel] 1 each PO DAILY 10/16/16 [ Last Taken Unknown] Omeprazole 20 mg PO DAILY 10/16/16 [Last Taken Unknown] PARoxetine HCL [Paxil] 40 mg PO DAILY 10/16/16 [Last Taken Unknown] Pitavastatin Calcium [Livalo] 4 mg PO DAILY 10/16/16 [Last Taken Unknown] Prasugrel HCl [Effient] 10 mg PO DAILY 10/16/16 [Last Taken Unknown] Triamcinolone Acetonide [Kenalog 0.1%] 1 appl TP BID 10/16/16 [Last Taken Unknown] metFORMIN HCL [Glucophage] 850 mg PO DAILY 10/16/16 [Last Taken Unknown] Ondansetron [Zofran Odt] 4 mg PO Q8H PRN #20 tab 12/06/16 [Last Taken Unknown] - History of Present Illness Narrative: Patient presents to the ED for psychiatric eval under court order. Patient is not sure why she is here. She states she had called the police about sa neighbor harrassing her. She thinks the neighbow is trying to get back at her. She relates a Hx of depression and takes her medication for that. She denies SI and HI. No acute medical complaints. No CP or SOB. No fever. She is not sure in general why she was brought in. Time Seen by Provider: 02/17/17 13:58 Arrived by: Reports: police Intent: Denies: suicide, prior thoughts of suicide Situational Problems: Reports: other - problems with a neighbor by report. Associated Symptoms: Denies: depressed, paranoid, confused, hallucinating, suicidal thoughts Prior Treament: Denies: recently seen Review of Systems - Review of Systems Constitutional: Absent: fever ENT: Absent: sore throat Respiratory: Absent: shortness of breath Cardiology: Absent: chest pain Gastrointestinal/Abdominal: Absent: abdominal pain Psych: Present: other - no SI or HI - Patient's Past Medical History Patient History - Medical: Diabetes Type 2, Depression, Fibromyalgia Patient History - Cardiac/Respiratory: Coronary Heart Disease, Hyperlipidemia, Myocardial Infarction Patient History - Cancer: No Hx of Cancer Patient History - Surgical Procedures: Appendectomy, Cardiac stent, Hysterectomy , Other Patient History - Other: None LMP (females 10-50): Menopausal - Social History Living Situations: home Abuse History: No History of abuse Psych History: Hx of Depression Alcohol Use: none Drug Use: none - Immunizations Immunizations Up to Date: Yes Hx Pneumococcal Vaccination: No History of Influenza Vaccine: Yes Physical Exam - Physical Exam General Appearance: Present: alert, no apparent distress Head Exam: Present: normal inspection Eye Exam: Normal inspection: bilateral, PERRL: bilateral Ears, Nose, Throat: Present: normal ENT inspection Neck: Present: normal inspection, nontender Respiratory: Present: no respiratory distress, normal breath sounds, no accessory muscle use, lungs clear Cardiovascular/Chest: Present: regular rate, rhythm, normal peripheral pulses Gastrointestinal/Abdominal: Present: normal bowel sounds, nontender, soft. Absent: tenderness Back Exam: Present: normal inspection Extremity Exam: Present: normal inspection. Absent: non-tender, normal range of motion Neurological Exam: Present: alert, normal mood/affect, no motor/sensory deficits , other - No SI or HI Skin Exam: Absent: normal color, warm/dry ED Progress - Results and Orders Patient's Lab Results:: I have reviewed the patient's lab results. - Vital Signs Patient's Vital Signs:: I have reviewed the patient's vital signs. Vital Signs: Vital Signs 02/17/17 13:54 Temperature 37.1 C Pulse Rate 90 Respiratory 16 Rate Blood Pressure 141/90 O2 Sat by Pulse 97 Oximetry - Progress/Reassessment Chief Complaint: Psychiatric Problem Progress Note-Subjective: 02/17/17 17:18 patient seen in the ED by psychiatry and cleared to go home. I consulted psych. Patient otherwise medically stable. Departure Clinical Impression: Psychiatric exam requested by authority - Departure Disposition: Home self-care Condition: Stable Additional Instructions: You have been seen by psychiatry in the ED. Please follow-up with your doctor in 2-3 days for a re-check. Return if your condition worsens or changes in any way.
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
== END 2017-02-17 17:24 | disposition home or self-care (01) ==
LOC: ER 13:35
DX: Z04.6 Encounter for general psychiatric examination, requested by authority (principal); E11.9 Type 2 diabetes mellitus without complications; M79.7 Fibromyalgia; I25.2 Old myocardial infarction; E78.5 Hyperlipidemia, unspecified
CPT/HCPCS: 36415; 80053; 80307; 84443; 85025; 99284; G0480; G0481